=== PATIENT | female | born 1960 | race Caucasian/White ===

== ENCOUNTER 2020-01-09 11:51 | Inpatient (IN) | payer MEDICAID, OTHER ==
[~2020-01-09] VITALS: Ht 162.6 cm; Wt 65.6 kg
[2020-01-09] MEDS ORDERED: SODIUM CHLORIDE 0.9% 1,000 ML IV ONE (12:15)
[2020-01-09 12:58] LABS: Basophils # (auto) 0 10 ^3/uL (0-0.2); Basophils % (auto) 0.1 % (0.0-2.0); Eosinophils # (auto) 0 10 ^3/uL (0-0.8); Eosinophils % (auto) 0.3 % (0.0-7.0); Lymphocytes # (auto) 0.4 10 ^3/uL (0.4-5.4); Monocytes # (auto) 0.7 10 ^3/uL (0-1.3)
[2020-01-09 13:09] LABS: Hematocrit 37.5 % (36.0-46.0); Mean Corpuscular Hemoglobin 36.5 pg (28.0-32.0); Mean Corpuscular Hgb Conc. 34.7 g/dL (32.0-36.0); Mean Corpuscular Volume 105.1 fL (80.0-100.0); Monocytes % (auto) 10.4 % (0.0-12.0); Neutrophils # (auto) 5.7 10 ^3/uL (1.6-8.6); Neutrophils % (auto) 83.2 % (37.0-80.0); Platelet Count (auto) 199 10^3/uL (140-450); Red Blood Cells 3.57 10^6/uL (4.0-5.20); Red Cell Distribution Width 13.8 % (11.8-14.3); White Blood Cell 6.9 10^3/uL (4.4-10.8)
[2020-01-09 13:14] LABS: Alanine Aminotransferase 28 U/L (13-56); Albumin 1.8 g/dL (3.4-5.0); Anion Gap 7 (5-15); Aspartate Aminotransferase 58 U/L (15-37); BUN/Creatinine Ratio 41.9; Blood Urea Nitrogen 13 mg/dL (7-18); Calcium 8.9 mg/dL (8.5-10.1); Carbon Dioxide 29 mmol/L (21-32); Chloride 103 mmol/L (98-107); GFR African American 281 mL/min; GFR Non-African American 232 mL/min; Glucose 102 mg/dL (74-106); Sodium 139 mmol/L (136-145)
[2020-01-09 13:17] LABS: INR 0.99 (0.9-1.15); Partial Thromboplastin Time 23.9 sec (23.0-31.2)
[2020-01-09 13:19] LABS: Alkaline Phosphatase 108 U/L (45-117); Bilirubin, Total 0.6 mg/dL (0.2-1.0); Total Protein 5.7 g/dL (6.4-8.2)
[2020-01-09 13:23] LABS: Potassium 2.7 mmol/L (3.5-5.1)
[2020-01-09] MEDS ORDERED: POTASSIUM EFFERVESENT TAB 25 MEQ PO ONE (13:30)
[2020-01-09] MEDS ORDERED: NITROGLYCERIN 0.4 MG SL TAB SL PRN ×2 (16:15→17:45)
[2020-01-09] MEDS ORDERED: MORPHINE SULF INJ 2 MG/ML SYRINGE 1ML IV PRN ×3 (16:15→17:45)
[2020-01-09] MEDS ORDERED: ASCO500T11 PO (17:12)
[2020-01-09] MEDS ORDERED: ASPI325T4 PO (17:12)
[2020-01-09] MEDS ORDERED: VITA100T3 PO (17:12)
[2020-01-09] MEDS ORDERED: DIPH25TA54 PO (17:12)
[2020-01-09] MEDS ORDERED: CHOL20007 PO (17:12)
[2020-01-09] MEDS ORDERED: SPECCAP4 OR (17:12)
[2020-01-09] MEDS ORDERED: CYAN100T7 PO (17:12)
[2020-01-09] MEDS ORDERED: GLUC1CAP12 PO (17:13)
[2020-01-09] MEDS ORDERED: FOLIC ACID 1 MG TAB PO ONE (17:30)
[2020-01-09] MEDS ORDERED: POTASSIUM CHL 20 Meq TABLET PO ONE (17:30)
[2020-01-09] MEDS ORDERED: POTASSIUM CHLORIDE 60 MEQ, LIDOCAINE 1% (LOCAL ANESTH.) 6 ML in SODIUM CHL 0.9% 500 ML IV ONE (17:30)
[2020-01-09] MEDS ORDERED: THIAMINE HCL 100 MG TAB PO ONE (17:30)
[2020-01-09] MEDS ORDERED: CLINDAMYCIN 600MG IV 50 ML IV ONE (17:30)
[2020-01-09] MEDS ORDERED: MULTIPLE VITAMINS W/ MINERALS TAB PO ONE (17:30)
[2020-01-09] MEDS ORDERED: HYDROcodone-ACET 5/325MG TAB PO PRN (17:45)
[2020-01-09] MEDS ORDERED: ALUM & MAG HYDROX-SIMETH LIQ(MAALOX) 30 ML PO PRN (17:45)
[2020-01-09] MEDS ORDERED: ONDANSETRON HCL 4 MG/2 ML VIAL IV PRN (17:45)
[2020-01-09] MEDS ORDERED: ACETAMINOPHEN 325 MG TAB PO PRN (17:45)
[2020-01-09] MEDS ORDERED: LORazepam 0.5 MG TAB PO PRN (17:45)
[2020-01-09] MEDS ORDERED: DOCUSATE SOD 100 MG CAP PO PRN (17:45)
[2020-01-09] MEDS ORDERED: cefTRIAXone 1GM/50ML D5W 50 ML IV ONE (18:00)
[2020-01-09] MEDS: IPRATROPIUM BROM 0.5 MG/2.5ML INH SOL NEB SCH ×2 (18:00→22:29)
[2020-01-09] MEDS ORDERED: AZITHROMYCIN 500MG/ 250ML 250 ML IV ONE (19:00)
[2020-01-09 20:24] LABS: Cholesterol 147 mg/dL (< 200); HDL Cholesterol 51 mg/dL (40-59); LDL Cholesterol 85 mg/dL (< 100); Triglycerides 84 mg/dL (< 150)
[2020-01-09] MEDS: ALBUTEROL SULF 2.5 MG/0.5ML(0.5%) NEB SOLN NEB PRN ×2 (20:30→22:29)
--- NOTE | 2020-01-09 21:35 | NUR ---
wound picture taken
[2020-01-09 22:00] VITALS: BP 140/80
[2020-01-09] MEDS ORDERED: CLINDAMYCIN 600MG IV 50 ML IV SCH (22:00)
[2020-01-09] MEDS: NEOMYCIN-BACITRACIN-POLYM 15GM TOP OINT TOP SCH (22:00)
[2020-01-09] MEDS: ATORVASTATIN 20 MG TAB PO SCH (22:00)
[2020-01-09] MEDS: ASCORBIC ACID 500 MG TAB PO SCH (23:53)
[2020-01-10] VITALS (7 sets, daily range): BP systolic 133–142; BP diastolic 76–81
[2020-01-10] MEDS: SOD CHL 0.9%/ KCL 40MEQ 1,000 ML IV SCH ×2 (01:50→09:52)
[2020-01-10] MEDS: IPRATROPIUM BROM 0.5 MG/2.5ML INH SOL NEB SCH ×5 (02:00→20:01)
[2020-01-10] MEDS: NEOMYCIN-BACITRACIN-POLYM 15GM TOP OINT TOP SCH ×3 (05:22→21:52)
[2020-01-10] MEDS ORDERED: AZITHROMYCIN 500MG/ 250ML 250 ML IV ONE (06:00)
--- NOTE | 2020-01-10 06:52 | NUR ---
END OF SHIFT NOTE WILL ENDORSE PT CARE TO DAY SHIFT RN. PT [id number], NO S/S OF DISTRESS OR SOB
--- NOTE | 2020-01-10 07:45 | NUR ---
RECEIVED PATIENT ALERT AND ORIENTED X2, NOT IN DISTRESS, CRACKLE SOUNDS IN BILATERAL LUNG SOUNDS, RR=18 SAT=95%, ENCOURAGED DEEP BREATHING AND BREATHING, DEMONSTRATED UNDERSTANDING, DENIED SOB AND CHEST PAIN, SR R=92 ON TELE MONITOR, ABDOMEN SOFT WITH ACTIVE BS, LAST BM THIS MORNING REPORTED, LT FOR HEAD DRY WOUND AND RT. CHECK BRUISES NOTED, RT. UPPER EXTREMITY EDEMA AND ARM PIT WOUND, ELBOW WOUND AND HAND WOUNDS NOTED, RT, HEAP WOUND OPEN TO AIR, SACRUM WOUND COVERED WITH DRY AND INTACT OPTI FOAM DRESSING, LT ARM BRUISES NOTED, DRY AND INTACT OPEN TO AIR, BILATERAL HEELS BLANCHABLE REDNESS NOTED, PAIN L=2-4/10 REPORTED, RESTING ON BED, HEAD OF BED ELEVATED, BED ON LOW POSITION, RAILS UP X2, CALL LIGHTS ON REACH, PENDING SS CONSULT AND WOUND CONSULT, WILL CONTINUE MONITORING.
[2020-01-10] MEDS: cefTRIAXone 1GM/50ML D5W 50 ML IV SCH (09:22)
[2020-01-10] MEDS: ASPirin 81 mg TAB PO SCH (09:30)
[2020-01-10] MEDS: ASCORBIC ACID 500 MG TAB PO SCH ×2 (09:31→21:52)
[2020-01-10] MEDS: ENOXAPARIN SOD 40 MG/0.4 ML SYRINGE SC SCH (09:31)
[2020-01-10] MEDS: CYANOCOBALAMIN 500 MCG TAB PO SCH (09:31)
[2020-01-10] MEDS: THIAMINE HCL 100 MG TAB PO SCH (09:50)
[2020-01-10] MEDS ORDERED: MULTIPLE VITAMINS W/ MINERALS TAB PO SCH (10:00)
[2020-01-10] MEDS ORDERED: CHOLECALCIFEROL (VITD3) 2,000 UNIT CAP PO SCH (10:00)
[2020-01-10] MEDS ORDERED: FOLIC ACID 1 MG TAB PO SCH (10:00)
[2020-01-10] MEDS ORDERED: POTASSIUM CHL 20 Meq TABLET PO SCH (10:00)
[2020-01-10] MEDS ORDERED: AZITHROMYCIN 500MG/ 250ML 250 ML IV SCH (10:00)
--- NOTE | 2020-01-10 10:00 | NUR ---
IN CONTINENT, LARGE SOFT BLACK BM NOTED, KEEP DRY AND CLEAN, SACRAL WOUND DRESSING WAS CHANGED ORDERED, TOLERATED WELL, WILL CONTINUE MONITORING.
--- NOTE | 2020-01-10 12:00 | NUR ---
WOUND CARE NOTE: IN TO SEE PATIENT AT THIS TIME WITH MULTIPLE WOUNDS FOUND UPON ADMIT. PATIENT ADMITTED RECENTLY TO [facility] WITH DIAGNOSIS OF RIGHT ARM PAIN. CURRENT REED SCORE IS 15. PATIENT CAN SELF TURN/REPOSITION SELF. SHE HAD WOUND PHOTOS TAKEN UPON ADMIT BY BEDSIDE NURSE FOR REFERENCE. PATIENT STATES THAT SHE HAS FALLEN AT HOME, PASSING OUT A COUPLE OF TIMES. THE LAST TIME IT HAPPENED, SHE WAS DOWN, PASSED OUT FOR UNKNOWN TIME. HER NEIGHBOR CAME TO CHECK UP ON HER AND NOTED HER DOWN ON THE GROUND. PATIENT DID NOT WANT TO GO TO HOSPITAL, AND CONVINCED HER FRIEND FOR 4 DAYS TO NOT BRING HER TO HOSPITAL, UNTIL YESTERDAY. PATIENT LIVES AT HOME, HAS NOT SEEN A DOCTOR FOR MANY DECADES. 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 SHE CONTINUES TO HAVE BLACK ESCHAR COVERED LESIONS TO THESE AREAS. SHE NEVER FOLLOWED UP ON THESE LESIONS. PATIENT IS NOTED TO HAVE MULTIPLE WOUNDS, INCLUDING UNSTAGEABLE PRESSURE INJURY TO RIGHT AXILLA, RIGHT HIP, L/R SACRUM, RIGHT ARM; SCABBED ABRASIONS TO RIGHT ARM AND RIGHT LEG; LARGE SKIN TEAR TO RIGHT HAND. NEW WOUND PHOTOS TAKEN AGAIN AT THIS TIME FOR REFERENCE. PATIENT WOULD BENEFIT FROM DAILY/PRN DRESSING CHANGE TO SACRAL WOUNDS, EOD/PRN DRESSINGS TO OPEN/DRAINING WOUNDS, OK TO LEAVE SCABBED CLOSED WOUNDS OPEN TO AIR; SPECIALTY AIR MATTRESS, SKIN/WOUND CARE PLAN, DIETARY CONSULT, FREQUENT TURN SCHEDULE Q 2 HOURS, PRN CONDITION PERMITS, WITH PRESSURE REDISTRIBUTION USING PILLOWS/WEDGES, CONTINUED MONITORING BY WOUND CARE TEAM. Addendum: 01/10/20 at 1753 by Yaneth Fernandez RN Amended: Links added.
[2020-01-10] MEDS: SODIUM CHLORIDE 0.9% 1,000 ML IV SCH (14:15)
--- NOTE | 2020-01-10 14:26 | NUR ---
Nutrition Consult/assessment Note please see attached link for complete assessment [employer] needs BW 68 [id number] kcals (23-25 kcal/kgBW), Est Protein needs: 68-88 gms/day (1.0-1.3gm/kgBW r/t hypoalb). Will continue to monitor and reassess prn. Addendum: 01/10/20 at [address] Amended: Links added.
--- NOTE | 2020-01-10 17:00 | NUR ---
LARGE SOFT DARK BROWN BM NOTED, SKIN KEEP CLEAN AND DRY, TOLERATED WELL, WILL CONTINUE MONITORING.
[2020-01-10 17:05] LABS: CRP High Sensitivity 11.5 mg/dL (< 0.3)
--- NOTE | 2020-01-10 19:15 | NUR ---
OPENING NOTE Received report from day shift RN. Patient is A&O X's 4 with no s/s of distress and reports no pain. Educated patient on POC and to use call light when in need of any assistance. Patient verbalized understanding. Bed is in lowest/locked position with side rails up X's 2 and call light is within reach of patient. HOB elevated for aspiration precautions. Bed alarm set for safety. Will continue care.
--- NOTE | 2020-01-10 19:17 | NUR ---
RESTING ON BED, NOT IN DISTRESS, REPORT WAS GIVEN TO THE PROVIDER RELATIONS REPRESENTATIVE RN.
[2020-01-10] MEDS: ALBUTEROL SULF 2.5 MG/0.5ML(0.5%) NEB SOLN NEB PRN (20:01)
[2020-01-10] MEDS ORDERED: IPRATROPIUM BROM 0.5 MG/2.5ML INH SOL NEB PRN (20:30)
--- NOTE | 2020-01-10 21:20 | NUR ---
SPECIALTY MATTRESS PATIENT TRANSFERRED TO AIR MATTRESS. PATIENT TOLERATED WELL. WILL CONTINUE CARE.
[2020-01-10] MEDS: ATORVASTATIN 20 MG TAB PO SCH (21:52)
[2020-01-11 05:00] VITALS: BP 139/82
--- NOTE | 2020-01-11 05:52 | NUR ---
DRESSING CHANGE sacral dressing changed as ordered and dressing change to right hand changed as well. Will continue care. Dressing to right elbow is intact with minimal drainage.
--- NOTE | 2020-01-11 05:53 | NUR ---
PATIENT INCONTINENT Patient incontinent of urine and stool. Cleaned patient well with warm wash cloth and complete new linen/gown changed. Patient tolerated well. After cleaning patient, patient requested bedpan and had a soft/formed BM. patient was cleansed well again. Will continue care. Call light is within reach of patient.
[2020-01-11] MEDS: NEOMYCIN-BACITRACIN-POLYM 15GM TOP OINT TOP SCH ×3 (06:00→21:04)
[2020-01-11] MEDS: SODIUM CHLORIDE 0.9% 1,000 ML IV SCH ×2 (06:03→21:25)
[2020-01-11 06:04] LABS: Basophils # (auto) 0 10 ^3/uL (0-0.2); Eosinophils # (auto) 0.1 10 ^3/uL (0-0.8); Eosinophils % (auto) 0.8 % (0.0-7.0); Hematocrit 35.6 % (36.0-46.0); Lymphocytes # (auto) 0.9 10 ^3/uL (0.4-5.4); Monocytes # (auto) 0.8 10 ^3/uL (0-1.3); Neutrophils # (auto) 7.2 10 ^3/uL (1.6-8.6)
[2020-01-11 06:07] LABS: Basophils % (auto) 0.4 % (0.0-2.0); Hemoglobin 12.1 g/dL (12.2-16.2); Mean Corpuscular Hemoglobin 35.9 pg (28.0-32.0); Mean Corpuscular Volume 105.5 fL (80.0-100.0); Monocytes % (auto) 8.5 % (0.0-12.0); Neutrophils % (auto) 80.3 % (37.0-80.0); Platelet Count (auto) 255 10^3/uL (140-450); Red Blood Cells 3.37 10^6/uL (4.0-5.20); Red Cell Distribution Width 13.7 % (11.8-14.3)
[2020-01-11 06:14] LABS: Albumin 1.8 g/dL (3.4-5.0); Calcium 8.2 mg/dL (8.5-10.1); Magnesium 2.2 mg/dL (1.6-2.6); Potassium 4.4 mmol/L (3.5-5.1)
[2020-01-11 06:18] LABS: BUN/Creatinine Ratio 34.4; Bilirubin, Total 0.4 mg/dL (0.2-1.0); Total Protein 5.4 g/dL (6.4-8.2)
--- NOTE | 2020-01-11 07:25 | NUR ---
END OF SHIFT GAVE REPORT TO DAY SHIFT RN. WILL ENDORSE CARE.
--- NOTE | 2020-01-11 07:57 | NUR ---
Received patient alert and orient x4, not in distress, crackle sounds in bilateral lung lobes, RR=18 sat=95%, deep breathing and coughing encouraged, verbalized understanding, no s/s of sob and chest pain, SR r=76 on tele monitor, abdomen soft with active BS, incontinent, Rt. arm wounds covered with dry and intact dressing, Rt. hip wound dry and intact open to air, sacrum covered with dry and intact Optifoam dressing, radial and pedal pulses palpable, resting on bed, head of bed elevated, bed on low position, rails up x2, call light on reach, pending SS consult, will continue monitoring.
[2020-01-11 08:55] VITALS: BP 152/99
[2020-01-11] MEDS: AZITHROMYCIN 500MG/ 250ML 250 ML IV SCH (09:45)
[2020-01-11] MEDS: ASPirin 81 mg TAB PO SCH (09:45)
[2020-01-11] MEDS: cefTRIAXone 1GM/50ML D5W 50 ML IV SCH (09:45)
[2020-01-11] MEDS: ASCORBIC ACID 500 MG TAB PO SCH ×2 (09:46→20:58)
[2020-01-11] MEDS: CYANOCOBALAMIN 500 MCG TAB PO SCH (09:46)
[2020-01-11] MEDS: THIAMINE HCL 100 MG TAB PO SCH (09:46)
[2020-01-11] MEDS: ENOXAPARIN SOD 40 MG/0.4 ML SYRINGE SC SCH (09:47)
[2020-01-11] MEDS: CHOLECALCIFEROL (VITD3) 1,000UNIT=25mCg TAB PO SCH (09:47)
[2020-01-11] MEDS ORDERED: LORazepam 2MG/ML-1ML VIAL IV ONE (11:30)
[2020-01-11] MEDS ORDERED: IOHEXOL 350 MG/ML 100ML IJ ONE ×2 (11:40→17:48)
[2020-01-11 13:00] VITALS: BP 145/82
[2020-01-11 13:33] LABS: Urine Bacteria FEW /hpf (None Seen); Urine Blood Negative /uL (Negative); Urine Mucus FEW (None Seen); Urine Specific Gravity 1.013 (1.001-1.035); Urine WBC <1 /hpf (0 - 5)
[2020-01-11 13:50] LABS: Alcohol, Urine < 3.0 mg/dL (0-10); Amphetamine Screen, Urine NEGATIVE (NEGATIVE); Barbiturate Scree,Urine NEGATIVE (NEGATIVE); Benzodiazephine Screen, Urine NEGATIVE (NEGATIVE); Cannabinoid Screen, Urine NEGATIVE (NEGATIVE); Cocaine Screen, Urine NEGATIVE (NEGATIVE); Opiate Scree,Urine NEGATIVE (NEGATIVE); Phencyclidine Screen, Urine NEGATIVE (NEGATIVE)
[2020-01-11 16:53] VITALS: BP 130/79
[2020-01-11] MEDS: FOLIC ACID 1 MG, MULTIPLE VITAMIN 10 ML, MAGNESIUM SULF SDV 50% 8 MEQ, THIAMINE INJ 100... INJ SCH ×5 (18:00)
--- NOTE | 2020-01-11 19:01 | NUR ---
PT ASSESSED FOR PRN MED NEB TX. SPO2 95% ON RA, HR 98. PT DENIES ANY RESPIRATORY DISTRESS. NO TX INDICATED AT THIS TIME. PT IS AWARE TO HAVE RT PAGED IF TX NEEDED.
--- NOTE | 2020-01-11 19:42 | NUR ---
FRIEND AND SUPPORT OF THE PATIENT JACLYN DUPONT [phone], REQUESTED TO CONTACT SS OR SW TO DISCUSS PATIENT'S SAFETY CONCERNS REPORTED, INFORMATION GIVEN TO THE MAIN GALLEY SCULLION TO PASS IT TO DAY SHIFT RN IN AM, NOT IN DISTRESS, DENIED PAIN, RESTING ON BED, REPORT WAS GIVEN TO THE MAIN GALLEY SCULLION RN.
--- NOTE | 2020-01-11 20:05 | NUR ---
Opening Shift Note Assumed care of patient from Shanell RN, patient awake and alert. Patient on room air, oxygen saturation 97% No S/S of distress/SOB or pain. Bed locked in lowest position, side rails up X2, call light within reach. Instructed on POC and to call for assist PRN, will continue to monitor for changes Q1hr and PRN.
[2020-01-11] MEDS: ATORVASTATIN 20 MG TAB PO SCH (20:58)
[2020-01-11 22:00] VITALS: BP 142/78
[2020-01-12] MEDS: NEOMYCIN-BACITRACIN-POLYM 15GM TOP OINT TOP SCH ×4 (04:51→21:03)
[2020-01-12 05:06] VITALS: BP 149/78
--- NOTE | 2020-01-12 07:15 | NUR ---
Endorsed care to Bry HUNT. Patient asleep in bed, locked in lowest position, side rails up X2, call light within reach. No signs of SOB or distress.
--- NOTE | 2020-01-12 07:53 | NUR ---
PT. ASSESSED FOR PRN. MED NEB TX. , NO RESP. DISTRESS OR SOB NOTED. PT. IS CURRENTLY EATING BREAKFAST. HR=88,RR=18,SP02=95% ON RA. PT. STATES TX. NOT NEEDED AT THIS TIME. NO TX. GIVEN, INSTRUCTED PT. TO CALL IF NEEDED LATER. Addendum: 01/12/20 at 0917 by Virginia Israel RT Amended: Links added.
[2020-01-12 08:39] LABS: BUN/Creatinine Ratio 30.4; Potassium 3.5 mmol/L (3.5-5.1)
[2020-01-12] MEDS: cefTRIAXone 1GM/50ML D5W 50 ML IV SCH (08:40)
[2020-01-12 09:00] VITALS: BP 148/82
[2020-01-12 09:35] LABS: Hepatitis B Surface Antibody Negative
[2020-01-12 10:13] LABS: Hepatitis A Total Antibody Negative
[2020-01-12] MEDS: AZITHROMYCIN 500MG/ 250ML 250 ML IV SCH (10:31)
[2020-01-12] MEDS: CYANOCOBALAMIN 500 MCG TAB PO SCH (10:32)
[2020-01-12] MEDS: ASCORBIC ACID 500 MG TAB PO SCH ×2 (10:33→21:02)
[2020-01-12] MEDS: CHOLECALCIFEROL (VITD3) 1,000UNIT=25mCg TAB PO SCH (10:33)
[2020-01-12] MEDS: ASPirin 81 mg TAB PO SCH (10:34)
[2020-01-12] MEDS: ENOXAPARIN SOD 40 MG/0.4 ML SYRINGE SC SCH (10:38)
[2020-01-12 11:26] LABS: Hepatitis B Surface Antigen Negative (Negative)
[2020-01-12 11:34] LABS: Hepatitis B Core Total AB Negative
[2020-01-12 11:36] LABS: Hepatitis C Antibody Negative (Negative)
[2020-01-12] MEDS: FOLIC ACID 1 MG, MULTIPLE VITAMIN 10 ML, MAGNESIUM SULF SDV 50% 8 MEQ, THIAMINE INJ 100... INJ SCH ×5 (12:15)
[2020-01-12] MEDS ORDERED: amLODIPine BESYLATE 5 MG TAB PO ONE (12:15)
[2020-01-12 13:00] VITALS: BP 134/76
[2020-01-12] MEDS: SODIUM CHLORIDE 0.9% 1,000 ML IV SCH (15:30)
--- NOTE | 2020-01-12 16:53 | NUR ---
assessment Patient is a 59 year old female who is alert and oriented. Patients cognitive abilities are intact. Prior to admission patient lived home alone and functioned independently. Patient informed me she is able to care for her own ADLs. Per patient she will return home to her prior living arrangements post discharge and her friend Poppy will transport her home. Patient informed me she has a fww and a wheelchair for home use, but does not use them. Patient informed me she was getting up at night out of bed and tripped and fell hitting her head. Patient informed me she will have her 2 friends Poppy and Ana staying with her on discharge. Patient will not be alone. Patient has no payor source for home health. Patient is aware and agrees. I informed patient she has a right to speak to a manager social responsibility regarding all care. I informed patient she has a right to participate in any and all discharge planning. Patient does not have a POA and advanced directive. I have offered patient information on POA and advanced directives. I informed the patient the advantages and benefits of having an Advanced Directive. Patient verbalized understanding and agreed to discharge plan. Addendum: 01/12/20 at 1700 by Jacklyn JULIEN Amended: Links added.
[2020-01-12 17:00] VITALS: BP 123/72
--- NOTE | 2020-01-12 17:00 | NUR ---
Iqbal catheter Dc'd iqbal catheter as same noted to be leaking . Iqbal dc'd with clean technique following deflation of balloon. Patient tolerated well with no complaints of pain. Continue care. Iqbal catheter insertion Iqbal catheter 16 guage Urdu inserted with clean sterile technique as a replacement after talking to Dr. Solo to either discontinue or replace catheter and MD stated to replace iqbal catheter. Patient tolerated well.
--- NOTE | 2020-01-12 19:06 | NUR ---
Opening Shift Note Assumed care of patient from day shift Bry RN. Patient awake and alert with no S/S of distress/SOB or pain. Bed locked in lowest position, side rails up X2, call light within reach. Instructed on POC and to call for assist PRN, will continue to monitor for changes Q1hr and PRN.
[2020-01-12 19:48] VITALS: BP 123/72
--- NOTE | 2020-01-12 21:00 | NUR ---
ULTRASOUND AT THE BEDSIDE.
[2020-01-12 21:43] VITALS: BP 117/73
--- NOTE | 2020-01-12 22:00 | NUR ---
CUT PATIENTS FOOD INTO SMALLER PIECES. FED THE PATIENT 60% OF TRAY. TOLERATED WELL
--- NOTE | 2020-01-13 00:55 | NUR ---
TURNING Q2, ALTERNATING RAISING HOB.
[2020-01-13 04:59] VITALS: BP 117/70
--- NOTE | 2020-01-13 07:15 | NUR ---
CLOSING NOTE CARE ENDORSED TO RAJWINDER HUNT. PATIENT RESTING IN BED LOCKED IN LOWEST POSITION, SIDE RAILS UP X2, CALL LIGHT WITHIN REACH. NO SIGNS OF SOB OR DISTRESS.
[2020-01-13 07:27] LABS: Basophils # (auto) 0 10 ^3/uL (0-0.2); Eosinophils # (auto) 0.1 10 ^3/uL (0-0.8); Hemoglobin 11.6 g/dL (12.2-16.2); Monocytes # (auto) 0.5 10 ^3/uL (0-1.3); Neutrophils # (auto) 3.5 10 ^3/uL (1.6-8.6)
[2020-01-13 07:30] LABS: Basophils % (auto) 0.7 % (0.0-2.0); Eosinophils % (auto) 1.3 % (0.0-7.0); Lymphocytes # (auto) 0.8 10 ^3/uL (0.4-5.4); Mean Corpuscular Hgb Conc. 34.1 g/dL (32.0-36.0); Mean Corpuscular Volume 105.3 fL (80.0-100.0); Monocytes % (auto) 10.4 % (0.0-12.0); Neutrophils % (auto) 71.6 % (37.0-80.0); Nucleated Red Blood Cells % 0.1 %; Platelet Count (auto) 339 10^3/uL (140-450); Red Blood Cells 3.23 10^6/uL (4.0-5.20); Red Cell Distribution Width 13.8 % (11.8-14.3); White Blood Cell 4.8 10^3/uL (4.4-10.8)
[2020-01-13] MEDS: SODIUM CHLORIDE 0.9% 1,000 ML IV SCH (07:35)
[2020-01-13 07:44] LABS: Potassium 3.5 mmol/L (3.5-5.1)
[2020-01-13 07:56] LABS: BUN/Creatinine Ratio 24.1; Calcium 8.1 mg/dL (8.5-10.1)
[2020-01-13 09:00] VITALS: BP 126/71
--- NOTE | 2020-01-13 09:30 | NUR ---
Attempted PT eval. Pt requested to have PT in the afternoon because she just returned from radiology and is too tired. Will attempt again later.
[2020-01-13] MEDS: cefTRIAXone 1GM/50ML D5W 50 ML IV SCH (09:47)
[2020-01-13] MEDS ORDERED: amLODIPine BESYLATE 5 MG TAB PO SCH (10:00)
[2020-01-13] MEDS: CHOLECALCIFEROL (VITD3) 1,000UNIT=25mCg TAB PO SCH (10:47)
[2020-01-13] MEDS: ASCORBIC ACID 500 MG TAB PO SCH (10:47)
[2020-01-13] MEDS: ASPirin 81 mg TAB PO SCH (10:48)
[2020-01-13] MEDS: ENOXAPARIN SOD 40 MG/0.4 ML SYRINGE SC SCH (10:52)
[2020-01-13] MEDS: CYANOCOBALAMIN 500 MCG TAB PO SCH (10:52)
--- NOTE | 2020-01-13 11:11 | NUR ---
2nd attempt made for PT eval. Pt states she does not want to get up to ambulate because she is going home. Discussed AROM with patient and answered all questions for safe discharge home.
[2020-01-13] MEDS ORDERED: LEVO750T8 PO (11:55)
[2020-01-13] MEDS ORDERED: SACC250C PO (11:55)
--- NOTE | 2020-01-13 11:55 | NUR ---
MD Rod Rapp BEDSIDE DR. HERNANDEZ WAS IN TO SEE PATIENT AND MD LEFT ORDER FOR PATIENT'S DISCHARGE AND PRESCRIPTION TO BE FILLED BY [facility] AND PATIENT AWARE OF SAME.
[2020-01-13] MEDS ORDERED: MULT-351 PO (11:56)
[2020-01-13] MEDS ORDERED: AML5T PO (11:56)
[2020-01-13] MEDS: AZITHROMYCIN 500MG/ 250ML 250 ML IV SCH (12:06)
[2020-01-13 13:00] VITALS: BP 148/82
--- NOTE | 2020-01-13 13:07 | NUR ---
Respiratory note: Assessed pt for PRN medneb tx. HR 89, RR 14, SPO2 95% on room air. Breath sounds clear t/o. Pt denies SOB. No s/s of distress. Medneb tx not indicated at this time. Advised pt to call for RT if needed.
--- NOTE | 2020-01-13 14:11 | NUR ---
Iqbal catheter dc'd Order to discontinue iqbal catheter. Iqbal dc'd with clean technique following deflation of balloon. Patient tolerated well with no complaints of pain. Continue care.
--- NOTE | 2020-01-13 15:38 | NUR ---
re-assessment Patient is now discharged. I have called patients friend Poppy and she will be here around 5pm to pick up driver patient. Poppy is requesting some wound care supplies to dress patients armAmanda Londono RN has been notified. Addendum: 01/13/20 at 1540 by Jacklyn JULIEN Amended: Links added.
[2020-01-13 16:34] VITALS: BP 122/73
[2020-01-13 16:58] VITALS: BP 122/73
--- NOTE | 2020-01-13 17:25 | NUR ---
Discharge instructions given as ordered. Encourage to follow up with PMD as instructed. All questions and concerns addressed. Patient verbalized understanding. Medication reconciliation form completed and copy given to patient. . IV removed with catheter intact, pressure dressing applied, . Telemetry unit returned to ICU. Patient taken to vehicle via wheelchair with all personal belongings, accompanied by staff and patient's friend, Poppy. No distress noted at time of departure.
== END 2020-01-13 17:25 | disposition home or self-care (01) | DRG 383 ==
LOC: EDBD 11:51 → ER 11:51 → TELE 11:52 → TELE-WESTW 20:43
PROVIDERS: ADMIT Hospitalist; ATTEND Internal Medicine
DX: L03.113 Cellulitis of right upper limb (principal); J69.0 Pneumonitis due to inhalation of food and vomit; E43 Unspecified severe protein-calorie malnutrition; E87.6 Hypokalemia; M19.90 Unspecified osteoarthritis, unspecified site; D75.89 Other specified diseases of blood and blood-forming organs; Z20.828 Contact with and (suspected) exposure to other viral communicable diseases; E78.5 Hyperlipidemia, unspecified; F10.10 Alcohol abuse, uncomplicated; F41.9 Anxiety disorder, unspecified; I10 Essential (primary) hypertension; I34.0 Nonrheumatic mitral (valve) insufficiency; I44.0 Atrioventricular block, first degree; K76.0 Fatty (change of) liver, not elsewhere classified; K82.8 Other specified diseases of gallbladder; L03.114 Cellulitis of left upper limb; S00.83XA Contusion of other part of head, initial encounter; K75.9 Inflammatory liver disease, unspecified; Y90.9 Presence of alcohol in blood, level not specified; W18.39XA Other fall on same level, initial encounter; Z85.828 Personal history of other malignant neoplasm of skin; Y93.89 Activity, other specified; Y92.89 Other specified places as the place of occurrence of the external cause; Y99.8 Other external cause status; Z68.25 Body mass index [BMI] 25.0-25.9, adult; Z72.0 Tobacco use
CPT/HCPCS: 36415; 70450; 70551; 71045; 71275; 72192; 73060; 73120; 76705; 78226; 80048; 80053; 80061; 80307; 81001; 83036; 83615; 83735; 83880; 84132; 84443; 84484; 85025; 85379; 85610; 85730; 86141; 86704; 86706; 86708; 86803; 87040; 87086; 87205; 87340; 93005; 93306; 93886; 93971; 94640; 96361; 96365; 97110; 97116; 97163; G0378; J0696; J2001